=== PATIENT | female | born 1990 | race Caucasian/White ===

== ENCOUNTER 2019-05-21 21:46 | Emergency (ER) | payer OTHER ==
[2019-05-21] MEDS ORDERED: Silver Nitrate Application 1 EACH ONE ×2 (22:09→22:33)
== END 2019-05-21 23:57 | disposition home or self-care (01) ==
LOC: MADERS 21:46
DX: N88.8 Other specified noninflammatory disorders of cervix uteri (principal); K21.9 Gastro-esophageal reflux disease without esophagitis; F41.9 Anxiety disorder, unspecified; F17.210 Nicotine dependence, cigarettes, uncomplicated
CPT/HCPCS: 99283

== ENCOUNTER 2025-03-30 18:20 | Emergency (ER) | payer OTHER, SELFPAY ==
[2025-03-30] MEDS ORDERED: Lidocaine 1% PF 5 ML VIAL ONE (18:42)
[2025-03-30 19:17] LABS: Pregnancy Test - Urine (BHCG) POSITIVE (Negative); Pregu Control Background? CLEAR/WHITE (CLR/WHITE); Pregu Control Bar Appear? YES (CONTROL BAR)
[2025-03-30] MEDS ORDERED: Acetaminophen 500 MG TAB ONE (19:32)
[2025-03-30 19:36] LABS: Glucose, Urine (Dipstick) Negative (Negative); Leukocyte Negative (Negative); Protein, Urine (Dipstick) Negative (Neg-Trace); Specific Gravity, Urine 1.015 (1.005-1.030)
[2025-03-30 19:42] LABS: Bacteria/HPF Rare-Few HPF (None Seen); CAUTI Indications for Culture Acute Hematuria; RBC/HPF None Seen HPF (0-3); Urine Culture Reflex No No; WBC/HPF 0-3 HPF (0-3)
== END 2025-03-30 19:43 | disposition home or self-care (01) ==
LOC: MADERS 18:20
DX: S61.011A Laceration without foreign body of right thumb without damage to nail, initial encounter (principal); K04.7 Periapical abscess without sinus; K21.9 Gastro-esophageal reflux disease without esophagitis; F17.210 Nicotine dependence, cigarettes, uncomplicated; W26.8XXA Contact with other sharp object(s), not elsewhere classified, initial encounter; Z33.1 Pregnant state, incidental
CPT/HCPCS: 12001; 81001; 81025; 99283